=== PATIENT | female | born 1965 | race Caucasian/White ===

== ENCOUNTER → 2017-06-29 | Outpatient (CLI) | payer BC ==
[2017-06-29 11:21] LABS: BASO % 0 % (0-3); EOS # 0.2 x10^3/uL (0.0-0.7); EOS % 3 % (0-3); HEMATOCRIT 42.6 % (36.0-47.0); HEMOGLOBIN 14.4 g/dL (12.0-15.5); LYMPH # 2.1 x10^3/uL (1.0-4.8); LYMPH % 39 % (24-48); MEAN CORPUSCULAR HEMOGLOBIN 30 pg (25-35); MEAN CORPUSCULAR HGB CONC 34 g/dL (31-37); MEAN CORPUSCULAR VOLUME 89 fL (79-100); MONO # 0.5 x10^3/uL (0.0-1.1); MONO % 10 % (0-9); NEUT # 2.5 x10^3uL (1.8-7.7); NEUT % 48 % (31-73); PLATELET COUNT 403 x10^3/uL (140-400); RED BLOOD COUNT 4.79 x10^6/uL (3.50-5.40); WHITE BLOOD COUNT 5.3 x10^3/uL (4.0-11.0)
== END | disposition home or self-care (01) ==
LOC: PMG 09:56
PROVIDERS: ATTEND Physician Assistant Medical
DX: R10.31 Right lower quadrant pain (principal)
CPT/HCPCS: 36415; 85025

== ENCOUNTER → 2017-08-23 | Outpatient (CLI) | payer BC ==
--- NOTE | 2017-08-23 16:29 | RAD ---
Pelvic ultrasound, 08/23/2017: HISTORY: Dysfunctional uterine bleeding Transabdominal and transvaginal scans were obtained. The uterus measures 8.6 x 4.4 x 5.1 cm. There is a 1.4 cm nabothian cyst in the cervical region. The central uterine echo complex measures 6 mm in AP dimension. No uterine mass is identified. The right ovary was not visualized. The left ovary is of normal size. No adnexal mass is seen. No free fluid is evident in the pelvis. IMPRESSION: 1. Moderate sized nabothian cyst in the cervix. 2. Nonvisualization of the right ovary. 3. The pelvic ultrasound is otherwise unremarkable. Electronically signed by: Carlos Eduardo Long MD (08/23/2017 4:27 PM) [facility]
== END | disposition home or self-care (01) ==
LOC: US 10:51
PROVIDERS: ATTEND Physician Assistant Medical
DX: N88.8 Other specified noninflammatory disorders of cervix uteri (principal)
CPT/HCPCS: 76830; 76856

== ENCOUNTER 2019-07-08 15:32 | Emergency (ER) | payer BC | END 2019-07-08 16:40 | disposition left against medical advice (07) | LOC: ER 15:32 | DX: R10.9 Unspecified abdominal pain (principal); Z53.21 Procedure and treatment not carried out due to patient leaving prior to being seen by health care provider ==

== ENCOUNTER 2019-07-08 19:20 | Emergency (ER) | payer BC ==
[~2019-07-08] VITALS: Ht 157.5 cm; Wt 59.1 kg
[2019-07-08] MEDS ORDERED: MORPHINE SULFATE 10 MG/ML SYRINGE. SQ ONE (20:15)
[2019-07-08] MEDS ORDERED: IV RINGERS SOLUTION,LACTATED 1,000 ML IV ONE ×2 (20:15→22:30)
--- NOTE | 2019-07-08 20:18 | PHYS DOC ---
Past History Past Medical History: No Pertinent History Past Surgical History: Hysterectomy Alcohol Use: None Adult General Chief Complaint Chief Complaint: ABDOMINAL PAIN .. " I was upstairs in the clinic....for this abdomen ... pain.... they did a xray... but wanted me to come down here and get checked out... :'.. I ve been hurting down low on the right...." HPI HPI Patient is a 53 year old female who presents with above hx and complaints of Rt. lower abd. pain. Pt. has had pain starting yesterday. Pain grew increasingly worse today which resulted in her seeing her primary care this afternoon. Patient denies any intake bad food. Patient denies any travel. Patient denies any specific ill contacts. Patient had a normal stool the last 24 hours. Patient has had a chronic previous hysterectomy. Patient localizes her pain in right lower quadrant. Patient currently describes pain as severe. Patient denies any history of dysuria or renal stones. Seen in clinic today by Britt. Sent to ED for CT to evaluate for appendicitis. Review of Systems Review of Systems Constitutional: Denies fever or chills [] Eyes: Denies change in visual acuity, redness, or eye pain [] HENT: Denies nasal congestion or sore throat [] Respiratory: Denies cough or shortness of breath [] Cardiovascular: No additional information not addressed in HPI [] GI: Complaints are right lower quadrant abdominal pain, nausea. Denies vomiting, bloody stools or diarrhea [] : Denies dysuria or hematuria [] Musculoskeletal: Denies back pain or joint pain [] Integument: Denies rash or skin lesions [] Neurologic: Denies headache, focal weakness or sensory changes [] Endocrine: Denies polyuria or polydipsia [] All other systems were reviewed and found to be within normal limits, except as documented in this note. Family History Family History Noncontributory to presentation Current Medications Current Medications Current Medications Medications (Trade) Dose Ordered Sig/Arsenio Start Time Stop Time Status Last Admin Dose Admin Metronidazole 100 ml @ 100 mls/hr 1X ONCE 07/08/19 20:15 07/08/19 21:14 UNV Morphine Sulfate (Morphine 10mg Syringe) 10 mg 1X ONCE 07/08/19 20:15 07/08/19 20:16 UNV Allergies Allergies Allergies Coded Allergies Type Severity Reaction Last Updated Verified No Known Drug Allergies 07/08/19 No Physical Exam Physical Exam Constitutional: inacute distress, non-toxic appearance. [] HENT: Normocephalic, atraumatic, bilateral external ears normal, oropharynx dry, no oral exudates, nose normal. [] Eyes: PERRLA, EOMI, conjunctiva normal, no discharge. Glasses Neck: Normal range of motion, no tenderness, supple, no stridor. [] Cardiovascular:Heart rate regular rhythm, no murmur [] Lungs & Thorax: Bilateral breath sounds equal apex auscultation [] Abdomen: Bowel sounds decreased, soft, lower right quadrant tenderness, no masses, no pulsatile masses. Old surgery scars. Rebound to right lower quadrant Skin: Warm, dry, no erythema, no rash. [] Back: No tenderness, no CVA tenderness. [] Extremities: No tenderness, no cyanosis, no clubbing, ROM intact, no edema. [Has positive psoas sign on right with heel tap. Neurologic: Alert and oriented X 3, normal motor function, normal sensory functi on, no focal deficits noted. [] Psychologic: Affect anxious, judgement normal, mood normal. [] Current Patient Data Vital Signs Vital Signs Date Time Temp Pulse Resp B/P (MAP) Pulse Ox O2 Delivery O2 Flow Rate FiO2 07/08/19 20:05 98.1 86 18 100 Room Air EKG EKG Interpretation EKG shows a sinus rhythm at 86 bpm. No findings of acute STEMI with contralateral changes.[] Radiology/Procedures Radiology/Procedures [][place] [address] IMAGING REPORT Signed PATIENT: NICHOLE MURCIA ACCOUNT: [id number] : 1965 LOCATION: ER AGE: 53 SEX: F EXAM STATUS: REG ER ORD. PHYSICIAN: TANYA JARAMILLO MD REASON: Right lower quadrant abdomen pain, nausea, elevated WBC x 2 days PROCEDURE: CT ABD PELV W/ORAL&IV CONTRAST CT abdomen pelvis with contrast dated 07/08/2019. No comparison available. CLINICAL INDICATION: Right lower quadrant pain. Nausea and elevated white count for 2 days. TECHNIQUE: Contiguous axial imaging of the abdomen and pelvis performed after the administration of 75 cc Omnipaque 300. One or more of the following individualized dose reduction techniques were utilized for this examination: 1. Automated exposure control 2. Adjustment of the mA and/or kV according to patient size 3. Use of iterative reconstruction technique. FINDINGS: Limited images of lung bases are clear. Heart size within normal limits. No pleural or pericardial effusion. Liver, spleen, pancreas, adrenal glands, gallbladder and kidneys are unremarkable. No hydronephrosis. There is a dilated tubular structure in the right lower quadrant consistent with inflamed appendix. The luminal diameter is estimated at 1.4 cm and there is inflammatory stranding in the periappendiceal fat. There is an appendicolith near the appendiceal base measuring 1.1 cm. No localized perforation or abscess at this time. GI tract is otherwise normal in caliber and contour. No additional areas of bowel wall thickening. No inflammatory stranding in the mesentery. No ascites or lymphadenopathy. Abdominal aorta normal in caliber. Images of pelvis a nondistended urinary bladder. The uterus is surgically absent. No free fluid or pelvic lymphadenopathy. Bone windows show no acute findings. IMPRESSION: 1. Findings consistent with acute appendicitis. No localized perforation or abscess at this time. 2. Status post hysterectomy. Electronically signed by: Armando Gupta MD (07/08/2019 9:50 PM) [id number] DICTATED AND SIGNED BY: ARMANDO GUPTA MD DATE: 07/08/192149 CC: TANYA JARAMILLO MD; BRIAN FLYNN ~ [address] [place] [id number] IMAGING REPORT Signed PATIENT: NICHOLE MURCIA ACCOUNT: [id number] : 1965 LOCATION: ER AGE: 53 SEX: F EXAM STATUS: REG ER ORD. PHYSICIAN: TANYA JARAMILLO MD REASON: Right lower quadrant abdomen pain, nausea, elevated WBC x 2 days PROCEDURE: CT ABD PELV W/ORAL&IV CONTRAST CT abdomen pelvis with contrast dated 07/08/2019. No comparison available. CLINICAL INDICATION: Right lower quadrant pain. Nausea and elevated white count for 2 days. TECHNIQUE: Contiguous axial imaging of the abdomen and pelvis performed after the administration of 75 cc Omnipaque 300. One or more of the following individualized dose reduction techniques were utilized for this examination: 1. Automated exposure control 2. Adjustment of the mA and/or kV according to patient size 3. Use of iterative reconstruction technique. FINDINGS: Limited images of lung bases are clear. Heart size within normal limits. No pleural or pericardial effusion. Liver, spleen, pancreas, adrenal glands, gallbladder and kidneys are unremarkable. No hydronephrosis. There is a dilated tubular structure in the right lower quadrant consistent with inflamed appendix. The luminal diameter is estimated at 1.4 cm and there is inflammatory stranding in the periappendiceal fat. There is an appendicolith near the appendiceal base measuring 1.1 cm. No localized perforation or abscess at this time. GI tract is otherwise normal in caliber and contour. No additional areas of bowel wall thickening. No inflammatory stranding in the mesentery. No ascites or lymphadenopathy. Abdominal aorta normal in caliber. Images of pelvis a nondistended urinary bladder. The uterus is surgically absent. No free fluid or pelvic lymphadenopathy. Bone windows show no acute findings. IMPRESSION: 1. Findings consistent with acute appendicitis. No localized perforation or abscess at this time. 2. Status post hysterectomy. Electronically signed by: Armando Gupta MD (07/08/2019 9:50 PM) [id number] DICTATED AND SIGNED BY: ARMANDO GUPTA MD DATE: 07/08/192149 CC: TANYA JARAMILLO MD; BRIAN FLYNN ~ Reviewed previous x-ray film completed today outpatient. Shows nonobstructive bowel gas pattern. There was stool in the colon colon. No free air. Course & Med Decision Making Course & Med Decision Making Pertinent Labs and Imaging studies reviewed. (See chart for details) Patient initial exam consistent with acute appendicitis. We'll send patient for CT of abdomen. Discussed presentation testing and treatment plan with she will accept patient at [facility]. Discussed presentation, testing and tx. plan with Dr. Pires- he will consult for surgery. Pt. instructed to be NPO- Impression: 1. Abdomen Pain 2. Acute Appendicitis 3. Leukocytosis 19.2 4. Lactic acid 0.8 [] Ana Disclaimer Dragon Disclaimer This electronic medical record was generated, in whole or in part, using a voice recognition dictation system. Departure Departure: Disposition: /RESIDENCE PRIOR TO ADM Condition: STABLE Referrals: BRIAN FLYNN (PCP) Ana Disclaimer This chart was dictated in whole or in part using Voice Recognition software in a busy, high-work load, and often noisy Emergency Department environment. It may contain unintended and wholly unrecognized errors or omissions. Dragon Disclaimer This chart was dictated in whole or in part using Voice Recognition software in a busy, high-work load, and often noisy Emergency Department environment. It may contain unintended and wholly unrecognized errors or omissions. TANYA JARAMILLO MD Jul 08, 2019 20:18
[2019-07-08] MEDS ORDERED: IOHEXOL 300 MG/ML 75 ML VIAL. IV ONE (20:30)
[2019-07-08] MEDS ORDERED: IOHEXOL 240 MG/ML 50ML VIAL. PO ONE (20:30)
[2019-07-08] MEDS ORDERED: cefTRIAXone SODIUM 1 GM VIAL ONE (21:00)
[2019-07-08] MEDS ORDERED: IV NORMAL SALINE 50ML 50 ML ONE (21:00)
[2019-07-08 21:03] LABS: INFLUENZA A PATIENT NEGATIVE (NEGATIVE); INFLUENZA B PATIENT NEGATIVE (NEGATIVE)
--- NOTE | 2019-07-08 21:53 | RAD ---
CT abdomen pelvis with contrast dated 07/08/2019. No comparison available. CLINICAL INDICATION: Right lower quadrant pain. Nausea and elevated white count for 2 days. TECHNIQUE: Contiguous axial imaging of the abdomen and pelvis performed after the administration of 75 cc Omnipaque 300. One or more of the following individualized dose reduction techniques were utilized for this examination: 1. Automated exposure control 2. Adjustment of the mA and/or kV according to patient size 3. Use of iterative reconstruction technique. FINDINGS: Limited images of lung bases are clear. Heart size within normal limits. No pleural or pericardial effusion. Liver, spleen, pancreas, adrenal glands, gallbladder and kidneys are unremarkable. No hydronephrosis. There is a dilated tubular structure in the right lower quadrant consistent with inflamed appendix. The luminal diameter is estimated at 1.4 cm and there is inflammatory stranding in the periappendiceal fat. There is an appendicolith near the appendiceal base measuring 1.1 cm. No localized perforation or abscess at this time. GI tract is otherwise normal in caliber and contour. No additional areas of bowel wall thickening. No inflammatory stranding in the mesentery. No ascites or lymphadenopathy. Abdominal aorta normal in caliber. Images of pelvis a nondistended urinary bladder. The uterus is surgically absent. No free fluid or pelvic lymphadenopathy. Bone windows show no acute findings. IMPRESSION: 1. Findings consistent with acute appendicitis. No localized perforation or abscess at this time. 2. Status post hysterectomy. Electronically signed by: Armando Gupta MD (07/08/2019 9:50 PM) [id number]
[2019-07-08] MEDS ORDERED: ONDANSETRON PF 4 MG/2 ML VIAL. IVP ONE (22:15)
[2019-07-08] MEDS ORDERED: MORPHINE SULFATE 10 MG/ML SYRINGE. SQ PRN (22:45)
[2019-07-08 23:33] VITALS: BP 139/78
--- NOTE | 2019-07-08 23:43 | EKG ---
[address] [address] Test Date: 2019-07-08 Test Time: 23:27:44 Pat Name: NICHOLE MURCIA Department: Room: Gender: F Signing Agent: : [id number] Requested By: TANYA JARAMILLO Order Number: [id number] Reading MD: Measurements Intervals [place] Rate: 86 P: 47 OR: 154 QRS: 54 QRSD: 74 T: 56 QT: 356 QTc: 429 Interpretive Statements SINUS RHYTHM NO SPECIFIC ECG ABNORMALITIES RI6.01 No previous ECG available for comparison
== END 2019-07-08 23:55 | disposition short-term general hospital (02) ==
LOC: ER 19:20
DX: R10.31 Right lower quadrant pain (principal); K35.80 Unspecified acute appendicitis; Z90.710 Acquired absence of both cervix and uterus
CPT/HCPCS: 36415; 74177; 83605; 87040; 87804; 93005; 96365; 96368; 96372; 96375; 99285; J0696; J2270; J2405; J3490; J7120; Q9966; Q9967

== ENCOUNTER → 2019-07-08 | Outpatient (CLI) | payer BC ==
--- NOTE | 2019-07-08 18:07 | RAD ---
Two-view abdomen dated 07/08/2019. No comparison available. Clinical data indication: Right lower quadrant pain. FINDINGS: Flat and upright views of the abdomen show nondilated gas-filled loops of bowel throughout. No abnormal calcification. Small amount stool within the colon. No air-fluid level or pneumoperitoneum on the upright view. IMPRESSION: Nonobstructive bowel gas pattern. Electronically signed by: Armando Gupta MD (07/08/2019 6:04 PM) [id number]
[2019-07-08 18:38] LABS: BACTERIA,URINE 0 /HPF (0-FEW); BILIRUBIN,URINE NEG (NEG); CLARITY,URINE CLEAR; COLOR,URINE YELLOW; GLUCOSE,URINE NEG (NEG); NITRITE,URINE NEG (NEG); RBC,URINE OCC /HPF (0-2); SQUAMOUS EPITHELIAL CELL,UR FEW /LPF; UROBILINOGEN,URINE 0.2 mg/dL (0.2 mg/dL); WBC,URINE OCC /HPF (0-4)
[2019-07-08 18:39] LABS: ALBUMIN 4.3 g/dL (3.4-5.0); ALBUMIN/GLOBULIN RATIO 1.1 (1.0-1.7); CALCIUM 9.6 mg/dL (8.5-10.1); CREATININE 0.8 mg/dL (0.6-1.0); GFR 75.6; POTASSIUM 3.6 mmol/L (3.5-5.1); TOTAL BILIRUBIN 0.4 mg/dL (0.2-1.0); TOTAL PROTEIN 8.2 g/dL (6.4-8.2)
[2019-07-08 18:41] LABS: BASO % 0 % (0-3); EOS % 0 % (0-3); HEMATOCRIT 41.3 % (36.0-47.0); HEMOGLOBIN 13.6 g/dL (12.0-15.5); LYMPH # 1.1 x10^3/uL (1.0-4.8); LYMPH % 6 % (24-48); MEAN CORPUSCULAR HEMOGLOBIN 30 pg (25-35); MEAN CORPUSCULAR HGB CONC 33 g/dL (31-37); MEAN CORPUSCULAR VOLUME 90 fL (79-100); MONO % 5 % (0-9); NEUT % 89 % (31-73); PLATELET COUNT 385 x10^3/uL (140-400); RED BLOOD COUNT 4.61 x10^6/uL (3.50-5.40); RED CELL DISTRIBUTION WIDTH 14.2 % (11.5-14.5); WHITE BLOOD COUNT 19.2 x10^3/uL (4.0-11.0)
[2019-07-08 20:45] LABS: % BANDS 1 % (0-9); % LYMPHS 10 % (24-48); % MONOS 6 % (0-10); % SEGS 83 % (35-66); PLT ESTIMATE ADEQUATE (ADEQUATE)
== END | disposition home or self-care (01) ==
LOC: PMG 17:20
PROVIDERS: ATTEND Physician Assistant
DX: R10.31 Right lower quadrant pain (principal); R19.7 Diarrhea, unspecified; R11.0 Nausea
CPT/HCPCS: 36415; 74019; 80053; 81001; 82150; 83690; 85007; 85025

== ENCOUNTER → 2019-10-16 | Outpatient (CLI) | payer BC ==
--- NOTE | 2019-10-16 08:30 | RAD ---
EXAM: Abdomen sonogram. HISTORY: Right upper quadrant pain. TECHNIQUE: Sonographic imaging of the abdomen was performed. COMPARISON: CT dated 07/08/2019. FINDINGS: The liver is normal in size. No focal hepatic lesion is seen. The common bile duct is normal in caliber. There is a positive sonographic Urrutia's sign. The gallbladder is unremarkable. The pancreas is unremarkable. The right kidney is unremarkable. The inferior vena cava is patent. IMPRESSION: 1. Positive sonographic Urrutia's sign. 2. Otherwise, unremarkable abdomen sonogram. Electronically signed by: Cynthia Mcnulty MD (10/16/2019 8:28 AM) [id number]
== END ==
LOC: PMG 07:57
PROVIDERS: ATTEND Physician Assistant Medical
DX: R10.11 Right upper quadrant pain (principal)
CPT/HCPCS: 76705

== ENCOUNTER → 2019-10-30 | Outpatient (CLI) | payer BC ==
[~2019-10-30] MED LIST: NORMAL SALINE IV ONE; SINCALIDE IV ONE
--- NOTE | 2019-10-30 10:23 | RAD ---
EXAM: HEPATOBILIARY SCINTIGRAPHY WITH GALLBLADDER EJECTION FRACTION CALCULATION. HISTORY: Abdominal pain/nausea. TECHNIQUE: 5.5 mCi technetium-99m Choletec were administered intravenously and scintigraphic images of the abdomen obtained. After filling of the gallbladder, 1.2 mcg of sincalide were infused and the gallbladder ejection fraction calculated. FINDINGS: There is prompt hepatic clearance of tracer from the blood pool. There is homogeneous distribution throughout the liver. There is normal filling of the gallbladder and clearance into the biliary tree and small bowel. The gallbladder ejection fraction is 13% (normal >35%). IMPRESSION: 1. Decreased gallbladder ejection fraction suggesting biliary dyskinesia. Electronically signed by: Berlin Denson MD (10/30/2019 10:20 AM) [id number]
== END | disposition home or self-care (01) ==
LOC: NM 07:41
PROVIDERS: ATTEND Physician Assistant Medical
DX: R10.11 Right upper quadrant pain (principal)
CPT/HCPCS: 78227; A9537; J2805

== ENCOUNTER → 2019-11-30 | Outpatient (CLI) | payer BC ==
--- NOTE | 2019-12-03 15:17 | RAD ---
DATE: 11/30/2019 8:05 AM EXAM: MAMMO MAYRA SCREENING BILATERAL HISTORY: Screening. New baseline. COMPARISON: None available. Bilateral CC and MLO views of the breasts were performed. Bilateral breast tomosynthesis was performed in CC and MLO projections. This study was interpreted with the benefit of Computerized Aided Detection (CAD). FINDINGS: Breast Density: HETERO The breast parenchyma Is heterogeneously dense, which could reduce sensitivity of mammography. Breast parenchyma level C Encapsulated mixed fatty and glandular tissue mass in the medial right breast measuring 8 cm on the CC view is present, containing diffuse scattered calcifications. This is most consistent with a benign hamartoma. No suspicious masses, microcalcifications or architectural distortion is present to suggest malignancy in either breast. The visualized axillae are unremarkable. IMPRESSION: No mammographic evidence of malignancy. BI-RADS CATEGORY: 2 BENIGN FINDING(S) RECOMMENDED FOLLOW-UP: 12M 12 MONTH FOLLOW-UP Annual screening mammography is recommended, unless clinically indicated sooner based on symptoms or change in physical exam. PQRS compliance statement: Patient information was entered into a reminder system with a target due date for the next mammogram. Mammography is a sensitive method for finding small breast cancers, but it does not detect them all and is not a substitute for careful clinical examination. A negative mammogram does not negate a clinically suspicious finding and should not result in delay in biopsying a clinically suspicious abnormality. "Our facility is accredited by the [employer] Mammography [employer]."
== END | disposition home or self-care (01) ==
LOC: MAMMO 07:57
PROVIDERS: ATTEND Physician Assistant Medical
DX: Z12.31 Encounter for screening mammogram for malignant neoplasm of breast (principal); N64.89 Other specified disorders of breast
CPT/HCPCS: 77063; 77067

== ENCOUNTER → 2021-02-02 | Outpatient (CLI) | payer BC ==
--- NOTE | 2021-02-02 16:34 | RAD ---
Digital bilateral screening mammogram with tomography dated 02/02/2021. INDICATION: 55 years of age asymptomatic female patient presents for screening mammography. Screening TECHNIQUE: Full field craniocaudal and mediolateral oblique images of both breasts were obtained usi ng digital technique with tomosynthesis and also analyzed with computer-aided detection software. . COMPARISON: 11/30/2019 .. BREAST COMPOSITION: Category C: The breast tissue is heterogeneously dense, which could obscure detec tion of small masses. FINDINGS: There are multiple circumscribed nodular foci within the lower inner aspect of the right breast that are unchanged from prior study. No new mass or suspicious clustered calcification. No architectural d istortion. There is benign-appearing consultations in the right breast, unchanged. IMPRESSION: Stable bilateral mammogram. RECOMMENDATION: Annual screening mammography is recommended, unless clinically indicated sooner based on symptoms or change in physical exam. BIRADS 2: BENIGN This study was interpreted with the benefit of Computerized Aided Detection (CAD). Recommend follow-up routine screening exam in one year. Patient information is entered into the reminder system with a target due date for the next screening mammogram. Mammography is the most sensitive method for finding small breast cancers, but it does not detect the m all and is not a substitute for careful clinical examination. A negative mammogram does not negate a clinically suspicious finding and should not result in delay in biopsying a clinically suspicious a bnormality. "Our facility is accredited by the [employer] Mammography Program." Electronically signed by: Armando Gupta MD (02/02/2021 4:32 PM) [id number]
== END ==
LOC: MAMMO 14:49
PROVIDERS: ATTEND Physician Assistant Medical
DX: Z12.31 Encounter for screening mammogram for malignant neoplasm of breast (principal)
CPT/HCPCS: 77063; 77067